=== PATIENT | male | born 2000 | race Caucasian/White ===

== ENCOUNTER 2025-02-21 00:57 | Emergency (ER) | payer OTHER ==
[~2025-02-21] VITALS: Ht 185.4 cm; Wt 108.2 kg
[2025-02-21 02:11] VITALS: BP 142/82; TEMP 98.6
[2025-02-21] MEDS ORDERED: AUG875T PO (02:14)
[2025-02-21] MEDS ORDERED: METH4PAK PO (02:14)
--- NOTE | 2025-02-21 02:14 | ED.PDOC ---
Eye-HPI Chief Complaint: Neck Pain Time Seen by MD: 01:11 Primary Care Provider: NATASHA SOOLRIO Allergies: Coded Allergies: Valproic Acid (Verified Allergy, Unknown, 12/10/15) Information Source: Patient Mode of Arrival: Ambulatory Past Medical History PAST MEDICAL HISTORY: Schizophrenia Surgical History: Denies all surgeries Family History Family History: Unknown Social History Smoker: Non-Smoker Alcohol: Denies ETOH Use Drugs: Denies Drug Use Lives In: Home EENT DIFF Eye: N/A Ear: N/A Nose: N/A Mouth: Thrush Sore Throat: Manish's Angina, Peritonsillar Abscess, Peritonsillar Cellulitis, Pharyngitis, Streptococcal, Viral Pharyngitis, URI X-Ray, Labs, Meds, VS Vital Signs Date Time Temp Pulse Resp B/P (MAP) Pulse Ox O2 Delivery O2 Flow Rate FiO2 02/21/25 01:05 98.3 97 20 143/91 97 98.3 Time of 1ST Reevaluation: 02:12 Reevaluation 1ST: Unchanged Reevaluation 3RD: Improved Patient Education/Counseling: Diagnosis, Treatment, Prognosis, Need For Follow Up Family Education/Counseling: No Family Present SEPSIS Sepsis Screen Date sepsis recognized/suspect: Feb 21, 2025 Time Sepsis recognized/suspect: 0110 Recent Procedure: No On Antibiotic Therapy: No Respiratory Rate >20: No Heart Rate >90: Yes Temp<36 C (96.8 F) or >38.3 C: No SBP <90 or MAP <65 mmHG: No New Acute Mental Status Change: No Is the patient on CPAP, BIPAP,: No Vital Signs Date Time Temp Pulse Resp B/P (MAP) Pulse Ox O2 Delivery O2 Flow Rate FiO2 02/21/25 01:05 98.3 97 20 143/91 97 98.3 Departure 1 Departure Time of Disposition: 02:12 Impression: Primary Impression: Acute pharyngitis Qualified Codes: J02.9 - Acute pharyngitis, unspecified Disposition: 01 HOME / SELF CARE / HOMELESS Condition: Stable e-Prescriptions Methylprednisolone (Medrol Dosepak) 4 Mg Shyam 4 MG PO UD for 6 Days, #21 TAB UAD Prov: KAUSHAL BANERJEE [employer] 02/21/25 Amoxicillin & Pot Clavulanate (AUGMENTIN TABLET) 875 Mg Tb 875 MG PO BID for 7 Days, #14 TAB Prov: KAUSHAL BANERJEE 02/21/25 Discharged With: Self Stability Stability form required: No KAUSHAL BANERJEE Feb 21, 2025 02:14
[2025-02-21 03:03] VITALS: PULSE 98; RESP 22; O2SAT 98
[2025-02-21] MEDS: cefTRIAXone SOD 1,000 MG VL IM ONE (03:03)
== END 2025-02-21 03:14 | disposition home or self-care (01) ==
LOC: ER 00:59
DX: J02.9 Acute pharyngitis, unspecified (principal); B97.89 Other viral agents as the cause of diseases classified elsewhere; Z79.899 Other long term (current) drug therapy
CPT/HCPCS: 96372; 99284; J0696; J1100

== ENCOUNTER 2025-04-27 09:11 | Emergency (ER) | payer OTHER ==
[~2025-04-27] VITALS: Ht 185.4 cm; Wt 102.0 kg
--- NOTE | 2025-04-27 10:22 | ED.PDOC ---
SOB-HPI HPI Comments This is a pleasant 24-year-old male that presents with concerns of a sore throat The patient reports he was diagnosed with Devante bar virus two days ago by his PCP. Initial treatment prior to the diagnosis included a course of amoxicillin. Despite completion symptoms persisted. Patient had an appointment with his PCP two days ago regarding lab results and was advised conservative treatment and [id number] Tylenol and Motrin Patient presents with concerns of sore throat and general myalgia Chief Complaint: Earache Time Seen by MD: 09:27 Primary Care Provider: [facility] Reviewed notes: Nurses Notes, Medications, Allergies Information Source: Patient Mode of Arrival: Ambulatory Past Medical History PAST MEDICAL HISTORY: Schizophrenia Surgical History: Denies all surgeries Family History Family History: Unknown Social History Smoker: Non-Smoker Alcohol: Denies ETOH Use Drugs: Denies Drug Use Lives In: Home All Other Systems: Reviewed and Negative (Per HPI) Physical Exam General Appearance: No Apparent Distress, Normal HEENT: Normal ENT Inspection, Pharynx Normal, TMs Normal Neck: Full Range of Motion, Non-Tender, Normal, Normal Inspection Respiratory: Chest Non-Tender, Lungs Clear, No Accessory Muscle Use, No Respiratory Distress, Normal Breath Sounds Cardiovascular: No Edema, No JVD, No Murmur, No Gallop, Normal Peripheral Pulses, Regular Rate/Rhythm Breast Exam: Deferred Gastrointestinal: No Organomegaly, Non Tender, No Pulsatile Mass, Normal Bowel Sounds, Soft Genitalia: Deferred Pelvic: Deferred Rectal: Deferred Extremities: No calf tenderness, Normal capillary refill, Normal inspection, Normal range of motion, Non-tender, No pedal edema Musculoskeletal : Apperance: Normal Neurologic: Alert, spot remover II-XII nml as Tested, No Motor Deficits, Normal Affect, Normal Mood, No Sensory Deficits Cerebellar Function: Normal Reflexes: Normal Skin: Dry, Normal Color, Warm Lymphatic: No Adenopathy Was a procedure done? Was a procedure done?: No Differential Dx Differential Diagnosis: URI X-Ray, Labs, Meds, VS Vital Signs Date Time Temp Pulse Resp B/P (MAP) Pulse Ox O2 Delivery O2 Flow Rate FiO2 04/27/25 10:32 98.2 74 16 138/98 (111) 98 98.2 04/27/25 10:32 74 17 98 Room Air 04/27/25 09:14 97.4 77 18 142/109 99 97.4 X-Ray, Labs, Meds, VS Comment Patient presents for sore throat body aches likely due to EBV infection confirmed by recent lab work. The patient nontoxic non ill-appearing. Patient advised to continue with recommendations discussed with his PCP. Also advised to rest and hydrate. Take [id number] Tylenol and Motrin as needed. Patient is stable for discharge at this time. External notes reviewed. Test results and diagnostic imaging interpreted. All diagnostic findings, discharge care, education and instructions provided Follow-up with PCP in 2 to 3 days Patient verbalized understanding and agreed to treatment plan Vital signs stable, afebrile, no acute distress noted Patient ambulatory with strong steady gait Advised to return precautions for any new or worsening symptoms, return to ER immediately for re-evaluation Patient is aware that the purpose of this visit was for an acute medical emergency requiring emergent stabilization. Chronic conditions, including malignancies have not been ruled out. Patient is instructed to follow up with PCP as directed and discharge instructions for continued care and workup. If unable to arrange follow-up, patient is to return to the emergency department for reassessment. Patient (parent or legal guardian if applicable) was given verbal and written discharge instructions and acknowledges understanding. Time of 1ST Reevaluation: 10:21 Reevaluation 1ST: Improved Patient Education/Counseling: Diagnosis, Treatment Family Education/Counseling: Diagnosis, Treatment SEPSIS Sepsis Screen Date sepsis recognized/suspect: Apr 27, 2025 Time Sepsis recognized/suspect: 917 Recent Procedure: No On Antibiotic Therapy: No Respiratory Rate >20: No Heart Rate >90: No Temp<36 C (96.8 F) or >38.3 C: No SBP <90 or MAP <65 mmHG: No New Acute Mental Status Change: No Is the patient on CPAP, BIPAP,: No Vital Signs Date Time Temp Pulse Resp B/P (MAP) Pulse Ox O2 Delivery O2 Flow Rate FiO2 04/27/25 10:32 98.2 74 16 138/98 (111) 98 98.2 04/27/25 10:32 74 17 98 Room Air 04/27/25 09:14 97.4 77 18 142/109 99 97.4 Departure 1 Departure Time of Disposition: 10:22 Impression: Primary Impression: Viral syndrome Disposition: HOME / SELF CARE / HOMELESS Condition: Stable Additional Instructions: Discharge Note: Continue on your medications. Drink plenty of fluids. Follow up with your primary Dr. Take your prescriptions as ordered. If your condition becomes worse call and follow up with your primary Dr. for instructions or return to the ER if needed. Thank you for visiting [facility]. Discharged With: Self Critical Care Note Critical Care Time?: No Stability Stability form required: No Heart Score Heart Score: Heart Score Response (Comments) Value History N/A 0 EKG N/A 0 Age N/A 0 Risk Factors N/A 0 Troponin N/A 0 Total 0 TIFFANI BANSAL NP Apr 27, 2025 10:22
[2025-04-27 10:32] VITALS: BP 138/98; PULSE 74; RESP 17; TEMP 98.2; O2SAT 98
== END 2025-04-27 10:35 | disposition home or self-care (01) ==
LOC: ER 09:11
DX: B34.9 Viral infection, unspecified (principal); Z79.899 Other long term (current) drug therapy

== ENCOUNTER 2025-04-28 18:42 | Emergency (ER) | payer OTHER ==
[~2025-04-28] VITALS: Ht 185.4 cm; Wt 100.0 kg
[2025-04-28] MEDS: KETOROLAC TROMETH 30 MG/ML 1ML VIAL IM ONE (19:45)
--- NOTE | 2025-04-28 20:06 | DVH ---
INDICATION: luq upper quadrant pain, history mononucleosis infection TECHNIQUE: Multiple real-time sonographic images of the abdomen were obtained. COMPARISON: None FINDINGS: The spleen measures 12.25 x x 10.29 7.12 cm, volume of the spleen 469.76 mL The echogenicity is w ithin normal limits. IMPRESSION: 1. Spleen measures 12.25 cm in length.
[2025-04-28 20:11] VITALS: BP 148/82; RESP 16; TEMP 98.1
[2025-04-28 22:00] VITALS: O2SAT 98
[2025-04-28 22:02] VITALS: PULSE 75
--- NOTE | 2025-04-28 22:11 | ED.PDOC ---
History of Present Illness HPI Comments 24 M recently diagnosed with strep and mononucleosis reporting LUQ pain, chest pain .Pain started after stretching and doing a dance move this afternoon. No other injury. Currently 7/10 in severity. He denies any significant PMH. UTD on childhood vaccines. Associated ST, CP, cough, back pain, TORRES. No other complaints at this time. REVIEW OF SYSTEMS: General: No fever, no chills, or fatigue HEENT: + sore throat, no earache, no congestion, no neck pain. Cardiac: No chest pain. No palpitations. Lungs: No shortness of breath, + cough. GI: No nausea, no vomiting, no diarrhea, no constipation, + abdominal pain : No dysuria, frequency, or urgency. No hematuria. Musculoskeletal: No joint pain , no joint swelling, no extremity edema. Skin: No rash, no itching. Neuro: No headache, no dizziness, no weakness PHYSICAL EXAM: General: Awake, alert and oriented. No acute distress. Skin: Skin in warm, dry and intact. Appropriate color for ethnicity. HEENT: The head is normocephalic and atraumatic. Conjunctivae are clear without exudates or hemorrhage. Sclera is non-icteric. Eyelids are normal in appearance without swelling or lesions. Oral mucosa is pink and moist Neck: The neck is supple with normal range of motion. No JVD. Cardiac: Heart rate and rhythm are normal. No murmurs, gallops, or rubs are auscultated. Respiratory: No signs of respiratory distress. Lung sounds are clear in all lobes bilaterally without rales, rhonchi, or wheezes. Abdominal: Abdomen is soft, left upper quadrant-tender, without distention, guarding or rigidity. Bowel sounds are present and normoactive in all four quadrants. Extremities: Upper and lower extremities are atraumatic in appearance without deformity or edema. Neurological: The patient is awake, alert and oriented to person, place, and time with normal speech. Speech is clear. There is no facial asymmetry. Psychiatric: Appropriate mood and affect. Good judgement and insight. Chief Complaint: Chest Pain Time Seen by MD: 18:46 Primary Care Provider: [facility] Allergies: Coded Allergies: Valproic Acid (Verified Allergy, Unknown, 12/10/15) Mode of Arrival: EMS Past Medical History PAST MEDICAL HISTORY: Schizophrenia Surgical History: Denies all surgeries Family History Family History: Unknown Social History Smoker: Non-Smoker Alcohol: Denies ETOH Use Drugs: Denies Drug Use Lives In: Home Was a procedure done? Was a procedure done?: No Differential Dx Considerations may include: Differential diagnoses considered include acute ischemic coronary syndrome, aortic dissection, cardiac tamponade, mediastinitis, pulmonary embolus, pneumothorax, tension pneumothorax, esophageal rupture, coronary artery vasospasm, myocarditis, pericarditis, pneumonia, pulmonary edema, esophageal tear, pancreatitis, aortic stenosis, dilated cardiomyopathy, hypertrophic cardiomyopathy, mitral valve prolapse, malignancy, pleuritis, pneumomediastinum, primary pulmonary hypertension, cholecystitis, esophageal spasm, esophagus, gastritis, GERD, peptic ulcer disease, costochondritis, fibromyalgia, rib fracture, herpes zoster, radicular syndromes, thoracic outlet syndrome, somatization. X-Ray, Labs, Meds, VS Vital Signs Date Time Temp Pulse Resp B/P (MAP) Pulse Ox O2 Delivery O2 Flow Rate FiO2 04/28/25 22:02 75 04/28/25 22:00 98 Room Air* 0 21 04/28/25 20:11 98.1 77 16 148/82 (104) 99 98.1 04/28/25 20:05 77 04/28/25 19:52 66 04/28/25 19:13 98.3 73 18 142/81 98 98.3 04/28/25 18:50 63 Lab Test 04/28/25 19:57 04/28/25 18:52 Range/Units Troponin I High Sensitivity < 3 L < 3 L </=54 ng/L Current Medications Medications (Trade) Dose Ordered Sig/Karolyn Route Start Time Stop Time Status Last Admin Ketorolac Tromethamine (Toradol Injection) 30 mg ONCE ONCE IM 04/28/25 19:45 04/28/25 19:46 DC 04/28/25 19:45 Time of 1ST Reevaluation: 22:07 Reevaluation 1ST: Unchanged Patient Education/Counseling: Need For Follow Up Family Education/Counseling: No Family Present SEPSIS Sepsis Screen Date sepsis recognized/suspect: Apr 28, 2025 Time Sepsis recognized/suspect: 1843 Recent Procedure: No On Antibiotic Therapy: No Respiratory Rate >20: No Heart Rate >90: No Temp<36 C (96.8 F) or >38.3 C: No SBP <90 or MAP <65 mmHG: No New Acute Mental Status Change: No Is the patient on CPAP, BIPAP,: No Physician Orders Electrocardigram (04/28/25 18:45) Electrocardigram (04/28/25 19:45) Electrocardigram (04/28/25 21:45) Spleen (04/28/25 19:32) Covid19 Antigen Carmen (04/28/25 ) Rapid Influenza A&B (04/28/25 19:32) Vital Signs Date Time Temp Pulse Resp B/P (MAP) Pulse Ox O2 Delivery O2 Flow Rate FiO2 04/28/25 22:02 75 04/28/25 22:00 98 Room Air* 0 21 04/28/25 20:11 98.1 77 16 148/82 (104) 99 98.1 04/28/25 20:05 77 04/28/25 19:52 66 04/28/25 19:13 98.3 73 18 142/81 98 98.3 04/28/25 18:50 63 Medications Medications Dose Ordered Sig/Karolyn Route Start Time Stop Time Status Last Admin Dose Admin Ketorolac Tromethamine 30 mg ONCE ONCE IM 04/28/25 19:45 04/28/25 19:46 DC 04/28/25 19:45 Departure 1 Departure Time of Disposition: 22:09 Impression: Primary Impression: Chest pain Additional Impression: Left upper quadrant pain Disposition: 01 HOME / SELF CARE / HOMELESS Condition: Stable Additional Instructions: ED DISCHARGE INSTRUCTIONS Instructions: Please read all instructions provided in this packet carefully. Although you have been discharged from the Emergency Department, this does not mean that you have a "clean bill of health". No definitive diagnosis for your symptoms has been made today. It is possible that you are in the process of developing a serious illness. This is why you must return to the ED without fail if any new or worsening symptoms (especially if your symptoms include chest pain, trouble breathing, abdominal pain, fever, headache, confusion, trouble seeing, or trouble walking) It is also very important that you see a primary care provider (PCP) within the next 3-5 days to follow up. If you are unable to get an appointment, return to the ED for re-evaluation. CHEST PAIN EDUCATION There are many things that can cause chest pain. Some are not serious and will get better on their own in a few days. But some kinds of chest pain need more testing and treatment. Your doctor may have recommended a follow-up visit in the next few days. If you are not getting better, you may need more tests or treatment. Even though your doctor has released you, you still need to watch for any problems. The doctor carefully checked you, but sometimes problems can develop later. If you have new symptoms or if your symptoms do not get better, get medical care right away. If you have worse or different chest pain or pressure that lasts more than 5 minutes or you passed out (lost consciousness), call 911 or seek other emergency help right away. A medical visit is only one step in your treatment. Even if you feel better, you still need to do what your doctor recommends, such as going to all suggested follow-up appointments and taking medicines exactly as directed. This will help you recover and help prevent future problems. How can you care for yourself at home? Rest until you feel better. Take your medicine exactly as prescribed. Call your doctor if you think you are having a problem with your medicine. Do not drive after taking a prescription pain medicine. When should you call for help? Call 911 if: You passed out (lost consciousness). You have severe difficulty breathing. You have symptoms of a heart attack. These may include: Chest pain or pressure, or a strange feeling in your chest. Sweating. Shortness of breath. Nausea or vomiting. Pain, pressure, or a strange feeling in your back, neck, jaw, or upper belly or in one or both shoulders or arms. Lightheadedness or sudden weakness. A fast or irregular heartbeat. After you call 911, the ladle car operator may tell you to chew 1 adult-strength or 2 to 4 low-dose aspirin. Wait for an ambulance. Do not try to drive yourself. Call your doctor now or seek immediate medical care if: You have any trouble breathing. You have new or different chest pain. You are dizzy or lightheaded, or you feel like you may faint. Watch closely for changes in your health, and be sure to contact your doctor if you do not get better as expected. Current as of: January 30, 2024 Author: peerTransfer Staff? Comments 24-year-old male with complaint of chest pain, sore throat, LUQ pain and ongoing mononucleosis infection. EKG negative for signs of ischemia. High sensitivity troponin negative. CXR shows no acute process. Presentation not suggestive of acute coronary syndrome, pulmonary embolism or aortic dissection. Patient is afebrile and non toxic appearing. Patient improved at time of discharge. Patient has not been hypoxic, in respiratory distress or dyspneic during the ED observation. Patient able to ambulate without difficulty. Patient felt stable for discharge to follow up with PCP promptly. Patient advised to return to the ED with any new, worsening or concerning symptoms or inability to follow up with PCP. Critical Care Note Critical Care Time?: No Stability Stability form required: No Heart Score Heart Score: Heart Score Response (Comments) Value History N/A 0 EKG N/A 0 Age N/A 0 Risk Factors N/A 0 Troponin N/A 0 Total 0 VERNA JACOBSON MD Apr 28, 2025 22:11
--- NOTE | 2025-04-29 08:42 | ECG ---
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
--- NOTE | 2025-04-29 08:42 | ECG ---
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
--- NOTE | 2025-04-29 10:43 | ECG ---
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
== END 2025-04-28 22:56 | disposition home or self-care (01) ==
LOC: EDBD 18:42 → ER 18:42
DX: R10.12 Left upper quadrant pain (principal); R07.9 Chest pain, unspecified; F20.9 Schizophrenia, unspecified
CPT/HCPCS: 36415; 76705; 84484; 93005; 96372; 99285; J1885

== ENCOUNTER 2025-05-09 19:40 | Emergency (ER) | payer OTHER ==
[~2025-05-09] VITALS: Ht 177.8 cm; Wt 82.0 kg
[2025-05-09 19:44] VITALS: BP 144/83; PULSE 85; RESP 20; TEMP 98.1; O2SAT 99
--- NOTE | 2025-05-09 21:26 | ED.PDOC ---
History of Present Illness HPI Comments HPI: 24-year-old male who came to ER for right wrist pain. Patient states he has been experiencing throat pain for months. Has been taking amoxicillin and ibuprofen but offered no relief. Yesterday patient noted tingling over his right wrist, and few hours ago he started experiencing right wrist pain. Denies any recent trauma Patient has completed courses of antibiotics and was told to stop amoxicillin recently. He has already been evaluated for sore throat as well. He says he has been taking ibuprofen for pain control. Past Medical History: Devante-Scott virus, mono Surgical History: Denies Family History: Denies Personal and Social History: Denies HPI: Poor Historian. REVIEW OF SYSTEMS: CONSTITUTIONAL: Denies acute: fever, diaphoresis, chills, generalized weakness. HEAD: Denies acute: headache, photophobia Eyes: Denies acute: Double vision, vision loss, eye pain, eye discharge. EARS: Denies acute: tinnitus, hearing loss, ear discharge, ear pain, THROAT: Denies acute: swelling, difficulty swallowing , change in voice. NECK: Denies acute: neck pain, neck swelling, stiff neck. HEART: Denies acute : chest pain, palpitations, LUNGS: Denies acute: SOB, wheezing, cough, hemoptysis ABDOMEN: Denies acute: abdominal pain, Nausea, Vomiting, diarrhea, melena , hematemesis, hematochezia SKIN: Denies acute: rash, redness, lesions, itchiness. EXTREMITIES: Denies acute: calf pain, numbness, tingling, weakness, Denies acute: Low back pain. Neuro: Denies acute: focal neurological deficit, motor or sensory focal neurological deficit, tremors, seizure like activity, confusion, dizziness, change in mental status, loss of bowel or bladder function, cauda equina like symptoms. : Denies acute: dysuria, hematuria, flank pain, increase in urinary frequency. PSYCH: Denies acute: hallucination, suicidal ideation, homicidal ideation. PHYSICAL EXAM: General: ---no----acute distress, awake and alert. Head: normocephalic, atraumatic. No raccoon's eyes, no acosta sign. Neck: supple, trachea is midline, no swelling. Throat: Normal phonation. Foul odor from the mouth. Evaluation of the posterior pharynx reveals erythema and exudates. Eyes:, no erythema, no purulent discharge, no proptosis, no icterus. Heart: regular rate, regular rhythm, no significant murmur appreciated. Lungs: no apparent respiratory distress, Able to speak in full sentences. No wheezing, no rhonchi, no crackles. No stridors Clear to auscultation bilaterally. Abdomen: non tender to palpation, non distended, soft, no guarding, no rebound, + bowel sounds. Neuro: Awake, Alert, oriented to name, self, situation, follows commands GCS=15. Speech is normal. Skin: no petechia, no purpura, no cyanosis, non-pale, not jaundice. Lower extremities: --no - Pitting edema no deformity, no focal swelling, no calf TTP. Evaluation of the wrist of complaint: Right wrist tender to palpation without any apparent deformity or swelling. Radial pulses palpable. Patient has good motor and sensory. Patient is neurovascularly intact in the affected extremity. 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 Makes eye contact. Noted lazy eyes. moves all four extremities. Face: no apparent facial droop. Ambulating in the ED independently. No nuchal rigidity, Kernig's sign, Brudzinski's sign, no meningeal signs. ED COURSE: DISCLAIMER: This medical document was created using an electronic medical record system with voice recognition software and computerized dictation system. Although this document has been carefully reviewed, there might still be some phonetic and typographical errors. Occasional wrong-word or "sound-alike" substitutions may have occurred due to the inherent limitations of voice recognition software. These areas are purely typographical due to imperfections of the software pr ograms and do not reflect any compromise in the patient's medical care. Please read the chart carefully and recognize, using context, where these substitutions have occurred. Chief Complaint: Upper Extremity Time Seen by MD: 21:26 Primary Care Provider: [facility] Reviewed Notes: Nurses Notes, Allergies Allergies: Coded Allergies: Valproic Acid (Verified Allergy, Unknown, 12/10/15) Information Source: Patient Mode of Arrival: Ambulatory Past Medical History PAST MEDICAL HISTORY: Schizophrenia Past Medical History (Other): Devante bar virus Surgical History: Denies all surgeries Family History Family History: Unknown Social History Smoker: Non-Smoker Alcohol: Denies ETOH Use Drugs: Denies Drug Use Lives In: Home Was a procedure done? Was a procedure done?: No X-Ray, Labs, Meds, VS Vital Signs Date Time Temp Pulse Resp B/P (MAP) Pulse Ox O2 Delivery O2 Flow Rate FiO2 05/09/25 19:44 98.1 85 20 144/83 99 98.1 Lab Test 05/09/25 21:20 Range/Units White Blood Count 8.3 4.4-10.8 10^3/uL Red Blood Count 6.13 H 4.5-5.90 10^6/uL Hemoglobin 15.1 13.5-17.5 g/dL Hematocrit 45.8 41.0-53.0 % Mean Corpuscular Volume 74.7 L 80.0-100.0 fL Mean Corpuscular Hemoglobin 24.6 L 28.0-32.0 pg Mean Corpuscular Hemoglobin Concent 33.0 32.0-36.0 g/dL Red Cell Distribution Width 14.6 H 11.8-14.3 % Platelet Count 179 140-450 10^3/uL Mean Platelet Volume 9.9 6.9-10.8 fL Neutrophils (%) (Auto) 70.7 37.0-80.0 % Lymphocytes (%) (Auto) 22.3 10.0-50.0 % Monocytes (%) (Auto) 5.7 0.0-12.0 % Eosinophils (%) (Auto) 0.8 0.0-7.0 % Basophils (%) (Auto) 0.5 0.0-2.0 % Neutrophils # (Auto) 5.9 1.6-8.6 10 ^3/uL Lymphocytes # (Auto) 1.9 0.4-5.4 10 ^3/uL Monocytes # (Auto) 0.5 0-1.3 10 ^3/uL Eosinophils # (Auto) 0.1 0-0.8 10 ^3/uL Basophils # (Auto) 0 0-0.2 10 ^3/uL Nucleated Red Blood Cells 0.0 % Sodium Level 141 136-145 mmol/L Potassium Level 3.7 3.5-5.1 mmol/L Chloride Level 108 H 98-107 mmol/L Carbon Dioxide Level 27 20-31 mmol/L Anion Gap 6 5-15 Blood Urea Nitrogen 6 L 9-23 mg/dL Creatinine 1.28 0.700-1.30 mg/dL Glomerular Filtration Rate Calc 80 >90 mL/min BUN/Creatinine Ratio 4.7 L 10.0-20.0 Serum Glucose 85 74-106 mg/dL Lactic Acid Level 1.1 0.4-2.0 mmol/L Calcium Level 9.9 8.7-10.4 mg/dL Total Bilirubin 0.8 0.2-1.0 mg/dL Aspartate Amino Transferase (AST) 16 13-40 U/L Alanine Aminotransferase (ALT) 15 7-40 U/L Alkaline Phosphatase 65 46-116 U/L Total Protein 8.3 H 5.7-8.2 g/dL Albumin 5.1 H 3.2-4.8 g/dL Monoscreen Pending [place] [address] Ph: [phone] DIAGNOSTIC IMAGING Diagnostic Imaging Report : [id number] Signed PATIENT: JEANA FARRAR ACCT: [id number] UNIT: [id number] : 2000 LOC: ER ROOM / BED: / AGE / SEX: 24 / M ADM STATUS: REG ER SERVICE 32 ORDERING PHYSICIAN: CHRISTINE LIN DO PROCEDURE(s): RWRI - R WRIST 3+ VIEW XRAY REASON: PAIN ORDER NUMBER(s): [id number], ACCESSION NUMBER(s): [id number] EXAM: XY R WRIST 3+ VIEW XRAY INDICATION: PAIN TECHNIQUE: 3 views of the right wrist COMPARISON: None FINDINGS/IMPRESSION: No radiographic evidence of an acute osseous abnormality. There is no acute fracture, osseous malalignment, or aggressive focal osseous lesion. There is no radiographically apparent joint space narrowing. ATED BY: MAURO MACIAS MD DICTATED DATE/TIME: 05/09/252130 SIGNED BY: MAURO MACIAS MD SIGNED DATE/TIME: 05/09/252130 CC: [place] [address] Ph: [phone] DIAGNOSTIC IMAGING Diagnostic Imaging Report : [id number] Signed PATIENT: JEANA ESPINAL ACCT: [id number] UNIT: [id number] : 2000 LOC: ER ROOM / BED: / AGE / SEX: 24 / M ADM STATUS: REG ER SERVICE 10 ORDERING PHYSICIAN: CHRISTINE LIN DO PROCEDURE(s): NK2CT - NECK WITH CONTRAST SOFT REASON: sore throat ORDER NUMBER(s): [id number], ACCESSION NUMBER(s): [id number] EXAM: CT NECK WITH CONTRAST SOFT INDICATION: sore throat Exam Date: 05/10/2025 12:17 AM COMPARISON: None TECHNIQUE: CT of the neck with intravenous contrast. RADIATION DOSE: CTDIvol: 15.05 mGy, DLP: 433.5 mGy*cm CONTRAST: Type of contrast: Omnipaque 300 Contrast injected: 100 ml FINDINGS: There is no evidence of cervical mass lesion, pathologically enlarged lymph nodes or fluid collection. The fat planes of the neck appear intact. The airway and larynx are unremarkable. The parotid, submandibular and thyroid glands are unremarkable. The vascular structures of the neck appear patent. The visualized lung apices are clear. The limited visualized portions of the brain are unremarkable. The osseous structures are unremarkable. IMPRESSION: No abscess or other significant abnormality. ATED BY: DAVID TRAN MD DICTATED DATE/TIME: 05/10/2557 SIGNED BY: DAVID TRAN MD SIGNED DATE/TIME: 05/10/2557 CC: Time of 1ST Reevaluation: 21:23 Reevaluation 1ST: Unchanged Patient Education/Counseling: Diagnosis, Treatment Family Education/Counseling: No Family Present SEPSIS Sepsis Screen Date sepsis recognized/suspect: May 09, 2025 Time Sepsis recognized/suspect: 1946 Recent Procedure: No Respiratory Rate >20: No Heart Rate >90: No Temp<36 C (96.8 F) or >38.3 C: No SBP <90 or MAP <65 mmHG: No New Acute Mental Status Change: No Is the patient on CPAP, BIPAP,: No Physician Orders R Wrist 3+ View Xray (05/09/25 20:33) Neck With Contrast Soft (05/09/25 21:11) MONO (05/09/25 21:11) Blood Culture (05/09/25 21:11) Vital Signs Date Time Temp Pulse Resp B/P (MAP) Pulse Ox O2 Delivery O2 Flow Rate FiO2 05/09/25 19:44 98.1 85 20 144/83 99 98.1 Laboratory Tests Test 05/09/25 21:20 Lactic Acid Level 1.1 mmol/L (0.4-2.0) White Blood Count 8.3 10^3/uL (4.4-10.8) Departure 1 Departure Time of Disposition: 01:10 Impression: Primary Impression: Right wrist pain Additional Impression: Sore throat Disposition: 01 HOME / SELF CARE / HOMELESS Condition: Stable Additional Instructions: Additional instructions: Please read all instructions provided in this packet carefully. You MUST follow-up with your primary care/family doctor in 1 to 2 days. If you are unable to see your primary care/family doctor, please return to our emergency room for re-assessment and re-evaluation in 1 to 2 days. Return to the emergency room here in our facility or to the nearest ER [facility] if your symptoms change or worsen. CONSULTATIONS: you MUST Follow-up for consultation as soon as possible with: -ENT doctor in 1-2 days. Please call for appointment. You MUST call the consultants office yourself to make an appointment. You may need to arrange that through your insurance and/or your primary/family doctor. If you are unable to see the direct sales consultant in 1 to 2 days, you must return to our emergency room (or any other ER of your choice) for re-assessment and re- evaluation. Adequate fluid hydration. Although you have been discharged from the Emergency Department, this does not mean that you have a "clean bill of health". No definitive diagnosis for your symptoms has been made today. It is possible that you are in the process of developing a serious illness. This is why you must return to the ED without fail if any new or worsening symptoms develop. Below is a copy of your radiological report for follow up: [facility] [id number] [place] [facility] [id number] Ph: [phone] DIAGNOSTIC IMAGING Diagnostic Imaging Report : [id number] Signed PATIENT: JEANA ESPINAL ACCT: [id number] UNIT: [id number] : 2000 LOC: ER ROOM / BED: / AGE / SEX: 24 / M ADM STATUS: REG ER SERVICE 10 ORDERING PHYSICIAN: CHRISTINE LIN DO PROCEDURE(s): NK2CT - NECK WITH CONTRAST SOFT REASON: sore throat ORDER NUMBER(s): [id number], ACCESSION NUMBER(s): [id number] EXAM: CT NECK WITH CONTRAST SOFT INDICATION: sore throat Exam Date: 05/10/2025 12:17 AM COMPARISON: None TECHNIQUE: CT of the neck with intravenous contrast. RADIATION DOSE: CTDIvol: 15.05 mGy, DLP: 433.5 mGy*cm CONTRAST: Type of contrast: Omnipaque 300 Contrast injected: 100 ml FINDINGS: There is no evidence of cervical mass lesion, pathologically enlarged lymph nodes or fluid collection. The fat planes of the neck appear intact. The airway and larynx are unremarkable. The parotid, submandibular and thyroid glands are unremarkable. The vascular structures of the neck appear patent. The visualized lung apices are clear. The limited visualized portions of the brain are unremarkable. The osseous structures are unremarkable. IMPRESSION: No abscess or other significant abnormality. ATED BY: DAVID TRAN MD DICTATED DATE/TIME: 05/10/2557 SIGNED BY: DAVID TRAN MD SIGNED DATE/TIME: 05/10/2557 CC: [place] [address] Ph: [phone] DIAGNOSTIC IMAGING Diagnostic Imaging Report : [id number] Signed PATIENT: JEANA FARRAR ACCT: [id number] UNIT: [id number] : 2000 LOC: ER ROOM / BED: / AGE / SEX: 24 / M ADM STATUS: REG ER SERVICE 32 ORDERING PHYSICIAN: CHRISTINE LIN DO PROCEDURE(s): RWRI - R WRIST 3+ VIEW XRAY REASON: PAIN ORDER NUMBER(s): [id number], ACCESSION NUMBER(s): [id number] EXAM: XY R WRIST 3+ VIEW XRAY INDICATION: PAIN TECHNIQUE: 3 views of the right wrist COMPARISON: None FINDINGS/IMPRESSION: No radiographic evidence of an acute osseous abnormality. There is no acute fracture, osseous malalignment, or aggressive focal osseous lesion. There is no radiographically apparent joint space narrowing. ATED BY: MAURO MACIAS MD DICTATED DATE/TIME: 05/09/252130 SIGNED BY: MAURO MACIAS MD SIGNED DATE/TIME: 05/09/252130 CC: Discharged With: Self Critical Care Note Critical Care Time?: No I personally scribed for CHRISTINE LIN DO ([email or web address]) on 05/09/25 at 21:26. Elect ronically submitted by Vahe Hernandez ([facility]). I personally scribed for CHRISTINE LIN DO ([email or web address]) on 05/09/25 at 23:45. El ectronically submitted by Vahe Hernandez ([facility]). I personally scribed for CHRISTINE LIN DO ([email or web address]) on 05/10/25 at 01:07. Electronically submitted by Vahe Hernandez ([facility]). CHRISTINE LIN DO May 09, 2025 21:26
--- NOTE | 2025-05-09 21:33 | DVH ---
EXAM: XY R WRIST 3+ VIEW XRAY INDICATION: PAIN TECHNIQUE: 3 views of the right wrist COMPARISON: None FINDINGS/IMPRESSION: No radiographic evidence of an acute osseous abnormality. There is no acute fracture, osseous malalignment, or aggressive focal osseous lesion. There is no radiographically apparent joint space narrowing.
[2025-05-09 21:46] LABS: Hematocrit 45.8 % (41.0-53.0); Hemoglobin 15.1 g/dL (13.5-17.5); Mean Corpuscular Hemoglobin 24.6 pg (28.0-32.0); Mean Corpuscular Volume 74.7 fL (80.0-100.0); Nucleated Red Blood Cells % 0.0 %
[2025-05-09 22:06] LABS: Alanine Aminotransferase 15 U/L (7-40); Alkaline Phosphatase 65 U/L (46-116); BUN/Creatinine Ratio 4.7 (10.0-20.0); Calcium 9.9 mg/dL (8.7-10.4); Carbon Dioxide 27 mmol/L (20-31); Glucose 85 mg/dL (74-106); Potassium 3.7 mmol/L (3.5-5.1); Sodium 141 mmol/L (136-145)
[2025-05-09 22:07] LABS: Bilirubin, Total 0.8 mg/dL (0.2-1.0)
[2025-05-09 22:52] LABS: Anion Gap 6 (5-15)
[2025-05-09 23:04] LABS: Albumin 5.1 g/dL (3.2-4.8); Blood Urea Nitrogen 6 mg/dL (9-23); Chloride 108 mmol/L (98-107); Total Protein 8.3 g/dL (5.7-8.2)
[2025-05-10] MEDS: IOHEXOL 300 MG/ML 100ML BOTTLE IJ ONE (00:10)
--- NOTE | 2025-05-10 01:00 | DVH ---
EXAM: CT NECK WITH CONTRAST SOFT INDICATION: sore throat Exam Date: 05/10/2025 12:17 AM COMPARISON: None TECHNIQUE: CT of the neck with intravenous contrast. RADIATION DOSE: CTDIvol: 15.05 mGy, DLP: 433.5 mGy*cm CONTRAST: Type of contrast: Omnipaque 300 Contrast injected: 100 ml FINDINGS: There is no evidence of cervical mass lesion, pathologically enlarged lymph nodes or fluid collection. The fat planes of the neck appear intact. The airway and larynx are unremarkable. The parotid, submandibular and thyroid glands are unremarkable. The vascular structures of the neck appear patent. The visualized lung apices are clear. The limited visualized portions of the brain are unremarkable. The osseous structures are unremarkable. IMPRESSION: No abscess or other significant abnormality.
== END 2025-05-10 03:22 | disposition home or self-care (01) ==
LOC: ER 19:40
DX: M25.531 Pain in right wrist (principal); J02.9 Acute pharyngitis, unspecified; M54.2 Cervicalgia; F20.9 Schizophrenia, unspecified
CPT/HCPCS: 36415; 70491; 73110; 80053; 83605; 85025; 86308; 87040; 99285; Q9967

== ENCOUNTER 2025-05-12 23:35 | Emergency (ER) | payer OTHER ==
[~2025-05-12] VITALS: Ht 185.4 cm; Wt 97.6 kg
[2025-05-13 00:20] VITALS: BP 154/93; PULSE 62; RESP 18; TEMP 97.9; O2SAT 97
[2025-05-13] MEDS: ACETAMINOPHEN 325 MG TAB PO ONE (00:28)
[2025-05-13 00:55] LABS: Rapid Strep A Screen-Throat Negative
[2025-05-13 01:32] LABS: COVID19 ANTIGEN SOFIA FIA NEGATIVE (NEGATIVE)
[2025-05-13] MEDS ORDERED: ACET500T58 PO (01:53)
[2025-05-13] MEDS ORDERED: PRED20TA2 PO (01:53)
[2025-05-13] MEDS ORDERED: AMOX875T4 PO (01:53)
--- NOTE | 2025-05-13 01:53 | ED.PDOC ---
Eye-HPI HPI Comments 24 year old male presents to ER with complaints of sore throat x 1 day. Patient reports 8/10 sore throat pain x 1 day. 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 Patient presents to ER speaking in clear and complete sentences, in no distress and is noted to have a low grade fever on arrival at 100.3 F, denying any known fever prior to arrival to ER. Patient notes he is able to swallow liquids/solids but does have pain to throat upon doing so. Denies cough, shortness of breath, n/v, headache, body aches, chills or any further symptoms/complaints Chief Complaint: Sore Throat Time Seen by MD: 23:51 Primary Care Provider: [facility] Reviewed Notes: Nurses Notes, Medications, Allergies Allergies: Coded Allergies: Valproic Acid (Verified Allergy, Unknown, 12/10/15) Home Meds Active Scripts Acetaminophen (Acetaminophen) 500 Mg Tab, 500 MG PO Q4HPRN, #30 TAB 0 Refills Prov:JASON JEFFERS 05/13/25 Prednisone (Prednisone) 20 Mg Tab, 20 MG PO BID for 5 Days, #10 TAB 0 Refills Prov:JASON JEFFERS 05/13/25 Amoxicillin & Pot Clavulanate (Amoxicillin/Potassium Cla) 875 Mg Tab, 1 TAB PO BID for 10 Days, #20 TAB 0 Refills Prov:JASON JEFFERS 05/13/25 Information Source: Patient Mode of Arrival: Ambulatory Past Medical History PAST MEDICAL HISTORY: Anxiety, Depression, Schizophrenia Past Medical History (Other): Bipolar Surgical History: Denies all surgeries Family History Family History: Unknown Social History Smoker: Non-Smoker Alcohol: Denies ETOH Use Drugs: Denies Drug Use Lives In: Home Constitutional: reports: others (As stated in HPI) EENTM: reports: others (As stated in HPI) Respiratory: denies: cough, hemoptysis, orthopnea, SOB at rest, shortness of breath, SOB with excertion, stridor, wheezing, others Cardiovascular: denies: chest pain, dizzy spells, diaphoresis, Dyspnea on exertion, edema, irregular heart beat, left arm pain, lightheadedness, palpitations, PND, syncope, others Gastrointestinal: denies: abdomen distended, abdominal pain, blood streaked bowels, constipated, diarrhea, dysphagia, difficulty swallowing, hematemesis, melena, nausea, poor appetite, poor fluid intake, rectal bleeding, rectal pain, vomiting, others Genitourinary: denies: burning, dysuria, flank pain, frequency, hematuria, i ncontinence, penile discharge, penile sore, pain, testicle pain, testicle swelling, urgency, others Neurological: denies: dizziness, fainting, headache, left sided numbness, left sided weakness, numbness, paresthesia, pre-existing deficit, right sided numbness, right sided weakness, seizure, speech problems, tingling, tremors, weakness, others Musculoskeletal: denies: back pain, gout, joint pain, joint swelling, muscle pain, muscle stiffness, neck pain, others Integumetry: denies: bruises, change in color, change in hair/nails, dryness, laceration, lesions, lumps, rash, wounds, others Allergic/Immunocompromised: denies: Difficulty Healing, Frequent Infections, Hives, Itching, others Hematologic/Lymphatic: denies: anemia, blood clots, easy bleeding, easy bruising, swollen glands, others Endocrine: denies: excessive hunger, excessive sweating, excessive thirst, excessive urination, flushing, intolerance to cold, intolerance to heat, unexplained weight gain, unexplained weight loss, others Psychiatric: denies: anxiety, bipolar disorder, depression, hopeless, panic disorder, schizophrenia, sleepless, suicidal, others Physical Exam General Appearance: No Apparent Distress HEENT: PERRL/EOMI, Pharyngeal Erythema (Mild tonsillar swelling/erythema noted bilaterally without exudates. Uvula-normal), TMs Normal Neck: Full Range of Motion, Non-Tender, Normal Respiratory: Chest Non-Tender, Lungs Clear, No Accessory Muscle Use, No Respiratory Distress, Normal Breath Sounds Cardiovascular: No Murmur, No Gallop, Regular Rate/Rhythm Breast Exam: Deferred Gastrointestinal: NOT DONE Genitalia: Deferred Pelvic: Deferred Rectal: Deferred Extremities: Normal capillary refill, Normal range of motion Neurologic: Alert, No Motor Deficits, Normal Affect, Normal Mood, No Sensory Deficits Cerebellar Function: Normal Reflexes: Normal Skin: Dry, Normal Color, Warm Peripheral Pulses: 2+ carotid (R), 2+ carotid (L), 2+ Radial (R), 2+ Radial (L), 2+ Brachial (R), 2+ Brachial (L) Lymphatic: No Adenopathy Was a procedure done? Was a procedure done?: No Sedation Sedation?: No EENT DIFF Eye: N/A Sore Throat: Epiglottitis, Mononeucleosis, Peritonsillar Abscess, URI, Other (COVID 19, influenza) X-Ray, Labs, Meds, VS Vital Signs Date Time Temp Pulse Resp B/P (MAP) Pulse Ox O2 Delivery O2 Flow Rate FiO2 05/13/25 01:46 Room Air* 0 21 05/13/25 00:20 97.9 62 18 154/93 (113) 97 97.9 05/12/25 23:35 100.3 92 20 145/86 100 100.3 Lab Test 05/13/25 00:11 05/13/25 00:10 Range/Units Monoscreen Negative Influenza Type A Antigen Negative Negative Influenza Type B Antigen Negative Negative SARS-CoV-2 Antigen (Rapid) Negative NEGATIVE Group A Streptococcus Rapid Negative Current Medications Medications (Trade) Dose Ordered Sig/Karolyn Route Start Time Stop Time Status Last Admin Acetaminophen (Tylenol Tablet) 650 mg ONCE ONCE PO 05/13/25 00:00 05/13/25 00:01 DC 05/13/25 00:28 Swab results reviewed-negative [place] screen reviewed-negative Tylenol 650 mg p.o. ordered Patient afebrile, had improvement in symptoms, tolerating p.o. intake well and well appearing/in no distress prior to discharge Advised to drink plenty of fluids Advised to follow up with PCP in 1-2 days Patient verbalized understanding and agreeable with current plan of care Advised to return to ER immediately if symptoms worsen Time of 1ST Reevaluation: 01:24 Reevaluation 1ST: N/A Patient Education/Counseling: Diagnosis, Treatment, Prognosis, Need For Follow Up Family Education/Counseling: No Family Present SEPSIS Sepsis Screen Date sepsis recognized/suspect: May 12, 2025 Time Sepsis recognized/suspect: 2334 Recent Procedure: No On Antibiotic Therapy: No Respiratory Rate >20: No Heart Rate >90: No Temp<36 C (96.8 F) or >38.3 C: No SBP <90 or MAP <65 mmHG: No New Acute Mental Status Change: No Is the patient on CPAP, BIPAP,: No Vital Signs Date Time Temp Pulse Resp B/P (MAP) Pulse Ox O2 Delivery O2 Flow Rate FiO2 05/13/25 01:46 Room Air* 0 21 05/13/25 00:20 97.9 62 18 154/93 (113) 97 97.9 05/12/25 23:35 100.3 92 20 145/86 100 100.3 Medications Medications Dose Ordered Sig/Karolyn Route Start Time Stop Time Status Last Admin Dose Admin Acetaminophen 650 mg ONCE ONCE PO 05/13/25 00:00 05/13/25 00:01 DC 05/13/25 00:28 Departure 1 Departure Time of Disposition: 01:49 Impression: Primary Impression: Acute tonsillitis Qualified Codes: J03.90 - Acute tonsillitis, unspecified Disposition: HOME / SELF CARE / HOMELESS Condition: Stable e-Prescriptions Acetaminophen (Acetaminophen) 500 Mg Tab 500 MG PO Q4HPRN, #30 TAB 0 Refills Prov: JASON JEFFERS 05/13/25 Prednisone (Prednisone) 20 Mg Tab 20 MG PO BID for 5 Days, #10 TAB 0 Refills Prov: JASON JEFFERS 05/13/25 Amoxicillin & Pot Clavulanate (Amoxicillin/Potassium Cla) 875 Mg Tab 1 TAB PO BID for 10 Days, #20 TAB 0 Refills Prov: JASON JEFFERS 05/13/25 Discharged With: Friend Critical Care Note Critical Care Time?: No Stability Stability form required: No Heart Score Heart Score: Heart Score Response (Comments) Value History N/A 0 EKG N/A 0 Age N/A 0 Risk Factors N/A 0 Troponin N/A 0 Total 0 JASON JEFFERS May 13, 2025 01:53
== END 2025-05-13 02:02 | disposition home or self-care (01) ==
LOC: ER 23:35
DX: J03.90 Acute tonsillitis, unspecified (principal); F20.9 Schizophrenia, unspecified; F31.9 Bipolar disorder, unspecified; Z20.822 Contact with and (suspected) exposure to COVID-19
CPT/HCPCS: 36415; 86308; 87070; 87426; 87804; 87880

== ENCOUNTER 2025-05-19 09:05 | Emergency (ER) | payer OTHER ==
[~2025-05-19] VITALS: Ht 188 cm; Wt 97.1 kg
[~2025-05-19 09:05] MED LIST: ACET500T58 PO; AMOX875T4 PO; PRED20TA2 PO
[2025-05-19] MEDS ORDERED: FAMO20TA10 PO (09:53)
--- NOTE | 2025-05-19 09:53 | ED.PDOC ---
Eye-HPI HPI Comments This is a pleasant 24-year-old male that presents with a persistent symptoms despite prior treatment with the amoxicillin. See triage note Chief Complaint: Flu like Time Seen by MD: 09:15 Primary Care Provider: [facility] Reviewed Notes: Nurses Notes, Medications, Allergies Allergies: Coded Allergies: Valproic Acid (Verified Allergy, Unknown, 12/10/15) Home Meds Active Scripts Famotidine (PEPCID TABLET) 20 Mg Tb, 1 TAB PO DAILYP PRN for 30 Days, #30 TAB 0 Refills Prov:TIFFANI BANSAL [employer]PARTMENT SUPERVISOR 05/19/25 Acetaminophen (Acetaminophen) 500 Mg Tab, 500 MG PO Q4HPRN, #30 TAB 0 Refills Prov:JASON JEFFERS 05/13/25 Prednisone (Prednisone) 20 Mg Tab, 20 MG PO BID for 5 Days, #10 TAB 0 Refills Prov:JASON JEFFERS 05/13/25 Amoxicillin & Pot Clavulanate (Amoxicillin/Potassium Cla) 875 Mg Tab, 1 TAB PO BID for 10 Days, #20 TAB 0 Refills Prov:JASON JEFFERS 05/13/25 Information Source: Patient Mode of Arrival: Ambulatory Past Medical History PAST MEDICAL HISTORY: Anxiety, Depression, Schizophrenia Surgical History: Denies all surgeries Family History Family History: Unknown Social History Smoker: Non-Smoker Alcohol: Denies ETOH Use Drugs: Denies Drug Use Lives In: Home Physical Exam General Appearance: No Apparent Distress, Normal HEENT: Normal ENT Inspection, Pharynx Normal, TMs Normal Neck: Full Range of Motion, Non-Tender, Normal, Normal Inspection Respiratory: Chest Non-Tender, Lungs Clear, No Accessory Muscle Use, No Respiratory Distress, Normal Breath Sounds Cardiovascular: No Edema, No JVD, No Murmur, No Gallop, Normal Peripheral Pul ses, Regular Rate/Rhythm Breast Exam: Deferred Gastrointestinal: No Organomegaly, Non Tender, No Pulsatile Mass, Normal Bowel Sounds, Soft Genitalia: Deferred Pelvic: Deferred Rectal: Deferred Extremities: No calf tenderness, Normal capillary refill, Normal inspection, Normal range of motion, Non-tender, No pedal edema Musculoskeletal : Apperance: Normal Neurologic: Alert, sausage linker II-XII nml as Tested, No Motor Deficits, Normal Affect, Normal Mood, No Sensory Deficits Cerebellar Function: Normal Reflexes: Normal Skin: Dry, Normal Color, Warm Lymphatic: No Adenopathy Was a procedure done? Was a procedure done?: No EENT DIFF Eye: Other Sore Throat: Streptococcal, Viral Pharyngitis, URI, Other X-Ray, Labs, Meds, VS Vital Signs Date Time Temp Pulse Resp B/P (MAP) Pulse Ox O2 Delivery O2 Flow Rate FiO2 05/19/25 10:10 78 16 97 Room Air 05/19/25 10:10 98.9 89 16 118/76 (90) 97 98.9 05/19/25 09:08 97.6 88 16 136/85 100 97.6 X-Ray, Labs, Meds, VS Comment Patient presents with ongoing respiratory symptoms. We will defer any antibiotics at this time as findings are consistent with a viral etiology Medication was refilled On reevaluation, patient had symptomatic improvement. Patient is stable for discharge at this time. External notes reviewed. Test results and diagnostic imaging interpreted. All diagnostic findings, discharge care, education and instructions provided Follow-up with PCP in 2 to 3 days Patient verbalized understanding and agreed to treatment plan Vital signs stable, afebrile, no acute distress noted Patient ambulatory with strong steady gait Advised to return precautions for any new or worsening symptoms, return to ER immediately for re-evaluation Patient is aware that the purpose of this visit was for an acute medical emergency requiring emergent stabilization. Chronic conditions, including malignancies have not been ruled out. Patient is instructed to follow up with PCP as directed and discharge instructions for continued care and workup. If unable to arrange follow-up, patient is to return to the emergency department for reassessment. Patient (parent or legal guardian if applicable) was given verbal and written discharge instructions and acknowledges understanding. Time of 1ST Reevaluation: 09:20 Reevaluation 1ST: Improved Patient Education/Counseling: Diagnosis, Treatment Family Education/Counseling: Diagnosis, Treatment SEPSIS Sepsis Screen Date sepsis recognized/suspect: May 19, 2025 Time Sepsis recognized/suspect: 911 Recent Procedure: No On Antibiotic Therapy: No Respiratory Rate >20: No Heart Rate >90: No Temp<36 C (96.8 F) or >38.3 C: No SBP <90 or MAP <65 mmHG: No New Acute Mental Status Change: No Is the patient on CPAP, BIPAP,: No Vital Signs Date Time Temp Pulse Resp B/P (MAP) Pulse Ox O2 Delivery O2 Flow Rate FiO2 05/19/25 10:10 78 16 97 Room Air 05/19/25 10:10 98.9 89 16 118/76 (90) 97 98.9 05/19/25 09:08 97.6 88 16 136/85 100 97.6 Departure 1 Departure Time of Disposition: 09:52 Impression: Primary Impression: Acute pharyngitis Qualified Codes: J02.9 - Acute pharyngitis, unspecified Disposition: HOME / SELF CARE / HOMELESS Condition: Stable e-Prescriptions Famotidine (PEPCID TABLET) 20 Mg Tb 1 TAB PO DAILYP PRN for 30 Days, #30 TAB 0 Refills Prov: TIFFANI BANSAL NP 05/19/25 Discharged With: Self Critical Care Note Critical Care Time?: No Stability Stability form required: No Heart Score Heart Score: Heart Score Response (Comments) Value History N/A 0 EKG N/A 0 Age N/A 0 Risk Factors N/A 0 Troponin N/A 0 Total 0 TIFFANI BANSAL NP May 19, 2025 09:53
[2025-05-19 10:10] VITALS: BP 118/76; PULSE 78; RESP 16; TEMP 98.9; O2SAT 97
== END 2025-05-19 10:13 | disposition home or self-care (01) ==
LOC: ER 09:05
DX: J02.9 Acute pharyngitis, unspecified (principal); F20.9 Schizophrenia, unspecified; Z79.52 Long term (current) use of systemic steroids; F41.9 Anxiety disorder, unspecified; F32.A Depression, unspecified

== ENCOUNTER 2025-06-15 21:49 | Emergency (ER) | payer OTHER ==
[~2025-06-15] VITALS: Ht 185.4 cm; Wt 89.4 kg
[~2025-06-15 21:49] MED LIST changes: +FAMO20TA10 PO
[2025-06-15 22:20] LABS: Hemoglobin 15.0 g/dL (13.5-17.5); Mean Corpuscular Hemoglobin 24.6 pg (28.0-32.0)
[2025-06-15 22:22] LABS: Hematocrit 45.7 % (41.0-53.0); Mean Corpuscular Volume 75.1 fL (80.0-100.0); Nucleated Red Blood Cells % 0.2 %
--- NOTE | 2025-06-15 22:43 | DVH ---
EXAM: XY CHEST XRAY 1 VIEW CLINICAL HISTORY: CHEST PAIN TECHNIQUE: Single frontal view of the chest WID: COMPARISON: None FINDINGS: Lines and tubes: None Chest: The heart size and pulmonary vasculature is within normal limits. No pleural effusion, pneumothorax, or consolidation. The osseous structures are grossly intact. IMPRESSION: 1. No acute cardiopulmonary abnormality.
--- NOTE | 2025-06-15 22:53 | ECG ---
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
[2025-06-15] MEDS ORDERED: OMEP-434 PO (22:58)
--- NOTE | 2025-06-15 23:01 | ED.PDOC ---
HPI Comments Patient complaining of chest pain started yesterday continued today. States pain comes on randomly. Patient also complaining of frequent with a multi with swallowing. Reports he did have some mild acid reflux three four days ago. Patient states he has appointment with PCP coming in July. Patient states nothing makes it better, nothing makes it worse. Patient frequent to the emergency department with similar complaints. No chest pain no shortness for breath no fever no chills no cough. Chief Complaint: Chest Pain Time Seen by MD: 22:32 Primary Care Provider: [facility] Reviewed Notes: Nurses Notes Allergies: Coded Allergies: Valproic Acid (Verified Allergy, Unknown, 12/10/15) Home Meds Active Scripts Famotidine (PEPCID TABLET) 20 Mg Tb, 1 TAB PO DAILYP PRN for 30 Days, #30 TAB 0 Refills Prov:TIFFANI BANSAL NP 05/19/25 Acetaminophen (Acetaminophen) 500 Mg Tab, 500 MG PO Q4HPRN, #30 TAB 0 Refills Prov:JASON JEFFERS 05/13/25 Prednisone (Prednisone) 20 Mg Tab, 20 MG PO BID for 5 Days, #10 TAB 0 Refills Prov:JASON JEFFERS 05/13/25 Amoxicillin & Pot Clavulanate (Amoxicillin/Potassium Cla) 875 Mg Tab, 1 TAB PO BID for 10 Days, #20 TAB 0 Refills Prov:JASON JEFFERS 05/13/25 Information Source: Patient Mode of Arrival: Ambulatory Past Medical History PAST MEDICAL HISTORY: Anxiety, Depression, Schizophrenia Surgical History: Denies all surgeries Family History Family History: Unknown Social History Smoker: Non-Smoker Alcohol: Denies ETOH Use Drugs: Denies Drug Use Lives In: Home Constitutional: denies: chills, diaphoresis, fatigue, fever, malaise, sweats, weakness, others EENTM: reports: throat pain; denies: blurred vision, double vision, ear bleeding, ear discharge, ear drainage, ear pain, ear ringing, eye pain, eye r edness, hearing loss, mouth pain, mouth swelling, nasal discharge, nose bleeding, nose congestion, nose pain, photophobia, tearing, throat swelling, voice changes, others Respiratory: denies: cough, hemoptysis, orthopnea, SOB at rest, shortness of breath, SOB with excertion, stridor, wheezing, others Cardiovascular: reports: chest pain; denies: dizzy spells, diaphoresis, Dyspnea on exertion, edema, irregular heart beat, left arm pain, lightheadedness, palpitations, PND, syncope, others Gastrointestinal: denies: abdomen distended, abdominal pain, blood streaked bowels, constipated, diarrhea, dysphagia, difficulty swallowing, hematemesis, melena, nausea, poor appetite, poor fluid intake, rectal bleeding, rectal pain, vomiting, others Genitourinary: denies: burning, dysuria, flank pain, frequency, hematuria, incontinence, penile discharge, penile sore, pain, testicle pain, testicle swelling, urgency, others Neurological: denies: dizziness, fainting, headache, left sided numbness, left sided weakness, numbness, paresthesia, pre-existing deficit, right sided numbness, right sided weakness, seizure, speech problems, tingling, tremors, we akness, others Musculoskeletal: denies: back pain, gout, joint pain, joint swelling, muscle pain, muscle stiffness, neck pain, others Integumetry: denies: bruises, change in color, change in hair/nails, dryness, laceration, lesions, lumps, rash, wounds, others Allergic/Immunocompromised: denies: Difficulty Healing, Frequent Infections, Hives, Itching, others Hematologic/Lymphatic: denies: anemia, blood clots, easy bleeding, easy bruising, swollen glands, others Physical Exam General Appearance: No Apparent Distress, Normal HEENT: Normal ENT Inspection, Pharynx Normal, TMs Normal Neck: Full Range of Motion, Non-Tender, Normal, Normal Inspection Respiratory: Chest Non-Tender, Lungs Clear, No Accessory Muscle Use, No Respiratory Distress, Normal Breath Sounds Cardiovascular: No Edema, No JVD, No Murmur, No Gallop, Normal Peripheral Pulses, Regular Rate/Rhythm Breast Exam: Deferred Gastrointestinal: No Organomegaly, Non Tender, No Pulsatile Mass, Normal Bowel Sounds, Soft Genitalia: Deferred Pelvic: Deferred Rectal: Deferred Extremities: No calf tenderness, Normal capillary refill, Normal inspection, Normal range of motion, Non-tender, No pedal edema Musculoskeletal : Apperance: Normal Neurologic: Alert, nursery helper II-XII nml as Tested, No Motor Deficits, Normal Affect, Normal Mood, No Sensory Deficits Cerebellar Function: Normal Reflexes: Normal Skin: Dry, Normal Color, Warm Lymphatic: No Adenopathy Was a procedure done? Was a procedure done?: No CP Differential Dx Differential Diagnosis: Angina, Anxiety / Panic Attack Differential Diagnosis: HTN Essential Differential Diagnosis: Angina, Chest Wall Pain, Cholelithiasis, Esophageal reflux/spasm, Gastritis X-Ray, Labs, Meds, VS Vital Signs Date Time Temp Pulse Resp B/P (MAP) Pulse Ox O2 Delivery O2 Flow Rate FiO2 06/15/25 22:01 97.4 87 16 137/93 97 97.4 06/15/25 21:55 77 Lab Test 06/15/25 22:10 Range/Units White Blood Count 5.9 4.4-10.8 10^3/uL Red Blood Count 6.09 H 4.5-5.90 10^6/uL Hemoglobin 15.0 13.5-17.5 g/dL Hematocrit 45.7 41.0-53.0 % Mean Corpuscular Volume 75.1 L 80.0-100.0 fL Mean Corpuscular Hemoglobin 24.6 L 28.0-32.0 pg Mean Corpuscular Hemoglobin Concent 32.8 32.0-36.0 g/dL Red Cell Distribution Width 15.5 H 11.8-14.3 % Platelet Count 185 140-450 10^3/uL Mean Platelet Volume 9.1 6.9-10.8 fL Neutrophils (%) (Auto) 67.1 37.0-80.0 % Lymphocytes (%) (Auto) 24.8 10.0-50.0 % Monocytes (%) (Auto) 7.0 0.0-12.0 % Eosinophils (%) (Auto) 0.5 0.0-7.0 % Basophils (%) (Auto) 0.6 0.0-2.0 % Neutrophils # (Auto) 4.0 1.6-8.6 10 ^3/uL Lymphocytes # (Auto) 1.5 0.4-5.4 10 ^3/uL Monocytes # (Auto) 0.4 0-1.3 10 ^3/uL Eosinophils # (Auto) 0 0-0.8 10 ^3/uL Basophils # (Auto) 0 0-0.2 10 ^3/uL Nucleated Red Blood Cells 0.2 % Troponin I High Sensitivity 4 </=54 ng/L X-Ray, Labs, Meds, VS Comment Imaging was reviewed by this provider, there is no obvious pathological or acute disease process. Pending radiology review Labs were reviewed by this provider, no abnormalities Vital signs reviewed by this provider, clinically stable Time of 1ST Reevaluation: 22:59 Reevaluation 1ST: Improved Patient Education/Counseling: Diagnosis, Treatment, Need For Follow Up (Follow up with PCP at next available appointment.) Family Education/Counseling: Diagnosis, Treatment SEPSIS Sepsis Screen Date sepsis recognized/suspect: Jun 15, 2025 Time Sepsis recognized/suspect: 2203 Recent Procedure: No On Antibiotic Therapy: No Respiratory Rate >20: No Heart Rate >90: No Temp<36 C (96.8 F) or >38.3 C: No SBP <90 or MAP <65 mmHG: No New Acute Mental Status Change: No Is the patient on CPAP, BIPAP,: No Physician Orders Chest Xray 1 View (06/15/25 21:55) Electrocardigram (06/15/25 22:01) Electrocardigram (06/15/25 23:01) Electrocardigram (06/16/25 01:01) Vital Signs Date Time Temp Pulse Resp B/P (MAP) Pulse Ox O2 Delivery O2 Flow Rate FiO2 06/15/25 22:01 97.4 87 16 137/93 97 97.4 06/15/25 21:55 77 Laboratory Tests Test 06/15/25 22:10 White Blood Count 5.9 10^3/uL (4.4-10.8) Departure 1 Departure Time of Disposition: 22:58 Impression: Primary Impression: Musculoskeletal chest pain Additional Impression: Sore throat Disposition: HOME / SELF CARE / HOMELESS Condition: Stable e-Prescriptions Omeprazole Magnesium (Omeprazole) 20 Mg Tab 20 MG PO DAILY PRN, #30 TAB Prov: NEPTALI LOZANO 06/15/25 Discharged With: Self Critical Care Note Critical Care Time?: No Stability Stability form required: No Heart Score Heart Score: Heart Score Response (Comments) Value History Slightly Suspicious 0 EKG Normal 0 Age <45 0 Risk Factors No known risk factors 0 Troponin Normal limit 0 Total 0 NEPTALI LOZANO Jun 15, 2025 23:01
[2025-06-15 23:57] VITALS: BP 126/95; PULSE 81; RESP 16; TEMP 98.6; O2SAT 97
--- NOTE | 2025-06-16 12:50 | ECG ---
[facility] Test Date: 2025-06-15 Test Time: 21:55:12 Pat Name: JEANA NEGRON Department: ED Room: Gender: M Head Usher: : 2000 Requested By: EMERGENCY EMERGENCY Order Number: [id number] Reading MD: Aureliano Saldana Measurements Intervals [place] Rate: 77 P: 15 [place]: 155 QRS: 61 QRSD: 89 T: 61 QT: 344 QTc: 390 Interpretive Statements Sinus rhythm LVH by voltage Electronically Signed On 06-18-2025 17:18:29 PST by Aureliano Saldana Please click the below link to view image of tracing.
== END 2025-06-16 00:08 | disposition home or self-care (01) ==
LOC: ER 21:49
DX: J02.9 Acute pharyngitis, unspecified (principal); R07.89 Other chest pain; F41.9 Anxiety disorder, unspecified; F32.A Depression, unspecified; F20.9 Schizophrenia, unspecified; Z79.899 Other long term (current) drug therapy
CPT/HCPCS: 36415; 71045; 84484; 85025; 93005